=== PATIENT | female | born 1980 | race African-American/Black ===

== ENCOUNTER 2019-09-13 13:22 | Emergency (ER) | payer SELFPAY ==
[~2019-09-13] VITALS: Ht 170.2 cm; Wt 127.0 kg
[2019-09-13 13:53] LABS: Basophils # (auto) 0 10 ^3/uL (0-0.2); Eosinophils # (auto) 0.1 10 ^3/uL (0-0.8); Hematocrit 37.6 % (36.0-46.0); Hemoglobin 11.7 g/dL (12.2-16.2); Mean Corpuscular Hgb Conc. 31.1 g/dL (32.0-36.0); Mean Corpuscular Volume 70.8 fL (80.0-100.0); Red Blood Cells 5.31 10^6/uL (4.0-5.20)
[2019-09-13 13:55] LABS: Basophils % (auto) 0.4 % (0.0-2.0); Eosinophils % (auto) 1.1 % (0.0-7.0); Lymphocytes # (auto) 1.8 10 ^3/uL (0.4-5.4); Lymphocytes % (auto) 32.1 % (10.0-50.0); Monocytes # (auto) 0.4 10 ^3/uL (0-1.3); Monocytes % (auto) 6.6 % (0.0-12.0); Neutrophils # (auto) 3.3 10 ^3/uL (1.6-8.6); Neutrophils % (auto) 59.8 % (37.0-80.0); Nucleated Red Blood Cells % 0.1 %; Platelet Count (auto) 261 10^3/uL (140-450); Red Cell Distribution Width 17.1 % (11.8-14.3); White Blood Cell 5.5 10^3/uL (4.4-10.8)
[2019-09-13 14:10] LABS: Albumin 3.3 g/dL (3.4-5.0); Calcium 8.3 mg/dL (8.5-10.1); Potassium 3.5 mmol/L (3.5-5.1)
[2019-09-13 14:13] LABS: BUN/Creatinine Ratio 9.3; Bilirubin, Total 0.4 mg/dL (0.2-1.0); Total Protein 7.6 g/dL (6.4-8.2)
[2019-09-13 14:18] LABS: Urine Bacteria NONE SEEN /hpf (None Seen); Urine Blood Negative /uL (Negative); Urine Mucus FEW (None Seen); Urine Specific Gravity 1.023 (1.001-1.035); Urine WBC 52 /hpf (0 - 5)
[2019-09-13 14:44] VITALS: BP 160/103
== END 2019-09-13 14:45 | disposition home or self-care (01) ==
LOC: ER 13:22
DX: R51 Headache (principal); I10 Essential (primary) hypertension; N39.0 Urinary tract infection, site not specified; E46 Unspecified protein-calorie malnutrition
CPT/HCPCS: 36415; 70450; 80053; 81001; 85025